=== PATIENT | male | born 1945 | race Caucasian/White ===

== ENCOUNTER 2025-05-14 11:09 | Outpatient (CLI) | payer MEDICARE, SELFPAY ==
--- NOTE | 2025-05-14 11:00 | RT.EKG_ITS ---
APPROVED REPORT Exam: Resting ECG Reason for Exam: tachycardia Patient Location: O HR:106 bpm ECG Measurements Heart Rate [address] 172 P 70 QRSd 74 QRS 41 QT 311 T -44 QTc 413 Conclusion Sinus tachycardia...rate> 99 Otherwise normal ECG
== END 2025-05-14 11:10 | disposition home or self-care (01) ==
PROVIDERS: PCP Nurse Practitioner Family; Visit Provider Physician Assistant
DX: R00.0 Tachycardia, unspecified (principal); R07.89 Other chest pain
CPT/HCPCS: 93010

== ENCOUNTER 2025-05-14 11:42 | Inpatient (IN) | payer MEDICARE, SELFPAY ==
[2025-05-14] VITALS (39 sets, daily range): BP systolic 123–173; BP diastolic 74–112; PULSE 65–116; RESP 10–54; TEMP 36.5–37; O2SAT 89–96
--- NOTE | 2025-05-14 11:30 | RT.EKG_ITS ---
APPROVED REPORT Exam: Resting ECG Reason for Exam: chest pain Patient Location: E HR:109 bpm ECG Measurements Heart Rate 109 AXIS [place] 163 P 78 QRSd 72 QRS 59 QT 320 T -26 QTc 431 Conclusion Sinus tachycardia...rate> 99 Posterior infarct, old...prom R T, V1-V3 or Q >40mS, V7-V9 No Occlusion [place]
--- NOTE | 2025-05-14 11:45 | DI.RAD_ITS ---
Exam(s) XR CHEST 2V PA LATERAL EXAM: XR CHEST 2V PA LATERAL CLINICAL HISTORY: SOB, chest tightness TECHNIQUE: 2D digital imaging was performed of the chest. Two images were obtained. PA and lateral views were obtained. COMPARISON: No exams were available for comparison FINDINGS: MEDIASTINUM: Normal. HEART: Normal. PULMONARY VASCULATURE: Normal. LUNGS: There are no focal consolidating infiltrates present. PLEURAL SPACE: No pleural effusion or pneumothorax. BONE:Within normal limits for the patient's age. OTHER FINDINGS:Normal. IMPRESSION: No acute pulmonary findings. DATA REPOSITORY: RADIATION DOSE DELIVERED:
[2025-05-14 12:12] LABS: Abs Immature Grans 0.05 10^3/uL (0.0-0.06); HCT 49.9 % (40.0-50.0); HGB 16.4 g/dL (13.5-17.5); Immature Grans % 0.5 %; MCH 31.1 pg (27.0-33.0); MCHC 32.9 % (32.0-36.0); MCV 95 fL (80-95); MPV 9.9 fL (8.0-11.0); Platelet Count 119 10^3/uL (130-400); RBC 5.27 10^6/uL (4.36-5.78); RDW 12.6 % (11.8-14.1); RDW-SD 43.5 fL; WBC 10.93 10^3/uL (4.4-10.8)
--- NOTE | 2025-05-14 12:32 | ED.PROG_ITS ---
Date of service: 05/14/25 Time of Service: 12:33 Medical Decision Making I completed a bedside echocardiogram this patient. Patient had difficult windows. Patient plays golf but had no obvious tick bites. His PVR was within normal limits. Chest x-ray dimer ordered. If chest x-ray is negative for infiltrate we will consider CT scan for increased sensitivity. 3:42 PM Patient found to have multiple PEs. He remained without hypotension. His tachycardia improved. He was hospitalized locally. Please see JAYNA note for details. Discharge Plan Disposition Patient Disposition: Admit to [facility] Condition: Stable Discharge Details Clinical Impression: Pulmonary embolism, bilateral, Incidental pulmonary nodule Primary Care Provider: Clementina Persaud ED Provider: Mariola Chu Home Meds and New Rx's Prescriptions: No Action propranolol 10 mg tablet 10 mg PO .QD PRN (Reason: tremor(s)) Qty: 30 1RF Rx Instructions: 10 to 20 mg once as needed, administered 1 hour prior to anticipated exacerbating situation multivitamin [Men's Multi-Vitamin] 1 EACH tablet 1 ea PO ONCE POCUS Exam (ED) Limited Cardiac Exam DATE OF EXAM: 05/14/25 TIME OF EXAM: 12:34 PROVIDER THAT PERFORMED THE STUDY: Arsen Thomason IS THIS A REPEAT EXAM DURING THIS ENCOUNTER: no REASON FOR EXAM: Dyspnea VISUALIZED STRUCTURES: Four Chambers, Left ventricle and LVOT VIEW OBTAINED: Apical 4-Chamber, Parasternal long-axis and Subxiphoid PERTINENT FINDINGS/IMPRESSION: No pericardial effusion and No RV dilation DIFFERENTIAL DIAGNOSES: Aortic outflow track less than 4 cm, good squeeze, RV less than LV, no significant pericardial effusion. Left-sided B-lines. Exam complete
--- NOTE | 2025-05-14 12:36 | W.ED.GENAD ---
Discharge Plan Disposition Patient Disposition: Admit to [facility] Condition: Stable Discharge Details Clinical Impression: Pulmonary embolism, bilateral, Incidental pulmonary nodule Primary Care Provider: Clementina Persaud ED Provider: Mariola Chu Home Meds and New Rx's Prescriptions: No Action propranolol 10 mg tablet 10 mg PO .QD PRN (Reason: tremor(s)) Qty: 30 1RF Rx Instructions: 10 to 20 mg once as needed, administered 1 hour prior to anticipated exacerbating situation multivitamin [Men's Multi-Vitamin] 1 EACH tablet 1 ea PO ONCE HPI General Date/Time Provider Initiated Documentation: 05/14/25 11:45. HPI Narrative: Pantera is a 79-year-old male who presents to the emergency department today for evaluation of chest tightness with shortness of breath, fatigue, and low appetite. He reports symptoms started approximately 1 week ago, with slight chest tightness and cough, initially attributed to poor air quality. He has had fatigue since onset of symptoms. Symptoms became worse over the weekend, he was coughing up phlegm and felt like his chest was congested; remained bedridden for the weekend. Symptoms initially improved, then became worse a couple of days ago, he has had lightheadedness, chest tightness, and shortness of breath. Denies associated fever/chills, congestion, sore throat, nausea/vomiting, abdominal pain, change in bowel or bladder function, calf redness/swelling, pedal edema. No known recent ill contacts. He was evaluated at [facility] today, given nebulizer treatment minimal improvement of symptoms, there was concern for EKG changes and he was advised to come to the emergency dept for evaluation. He has been trying to stay well-hydrated at home. PMH significant for HLD, aortic atherosclerosis, essential tremor, and hearing loss requiring hearing aids. Related Data Home Medications ?Medication ?Instructions ?Recorded ?Confirmed multivitamin (Men's Multi-Vitamin 1 ea PO ONCE 03/26/15 05/14/25 tablet) propranolol 10 mg tablet 10 mg PO .QD PRN tremor(s) #30 tabs 03/11/25 05/14/25 Previous Rx's ?Medication ?Instructions ?Recorded propranolol 10 mg tablet 10 mg PO .QD PRN tremor(s) #30 tabs 03/11/25 Allergies Allergy/AdvReac Type Severity Reaction Status Date / Time No Known Allergies Allergy Unverified 05/14/25 11:52 General Stated Complaint: Chest Pain TINO: 2 Exam Narrative Exam Narrative: General Appearance: Normal. Patient is alert and oriented, no acute distress Vital signs: Tachycardia noted, heart rate in the 100s to 110s at rest. Afebrile, O2 sat in the low 90s on room air. HEENT: Moist mucous membranes. Respiratory: Easy work of breathing, lung sounds clear bilaterally. No cough during exam Cardiovascular: Tachycardia noted, normal heart sounds. No pedal edema or obvious JVD noted Skin: Warm and dry, no rash. Psychiatric: Normal. Course Vital Signs Vital signs: Vital Signs Temperature 36.5 C 05/14/25 11:44 Pulse 115 H 05/14/25 11:44 Respiratory Rate 23 05/14/25 11:44 Blood Pressure 123/87 05/14/25 11:44 Pulse Oximetry 92 05/14/25 11:44 Temperature 36.5 C 05/14/25 11:44 Temperature Source Oral 05/14/25 11:44 Pulse 106 H 05/14/25 12:20 Pulse 106 H 05/14/25 12:20 Respiratory Rate 28 H 05/14/25 12:20 Respiratory Effort Short of Breath 05/14/25 12:07 Respiratory Depth Normal 05/14/25 12:07 Respiratory Pattern Normal 05/14/25 12:07 Blood Pressure 123/87 05/14/25 11:44 Blood Pressure Position Sitting 05/14/25 11:44 Pulse Oximetry 93 05/14/25 12:20 Oxygen Delivery Method Room Air 05/14/25 11:44 Oxygen Flow Rate 0 05/14/25 11:44 Pain Level 7 05/14/25 11:44 Lab/Test Results Lab/Test Results: Laboratory Tests Range/Units 05/14/25 12:07 WBC (4.4-10.8) 10^3/uL 10.93 H RBC (4.36-5.78) 10^6/uL 5.27 Hgb (13.5-17.5) g/dL 16.4 Hct (40.0-50.0) % 49.9 MCV (80-95) fL 95 MCH (27.0-33.0) pg 31.1 MCHC (32.0-36.0) % 32.9 RDW (11.8-14.1) % 12.6 Plt Count (130-400) 10^3/uL 119 L MPV (8.0-11.0) fL 9.9 Immature Gran % % 0.5 Neutrophils % % 65.9 Lymphocytes % % 24.2 Monocytes % % 7.8 Eosinophils % % 1.1 Basophils % % 0.5 Nucleated RBC % (0.0-0.3) % 0.0 Absolute Neutrophils (1.2-6.7) 10^3/uL 7.20 H Absolute Lymphocytes (1.2-3.4) 10^3/uL 2.65 Absolute Monocytes (0.1-0.8) 10^3/uL 0.85 H Absolute Eosinophils (0.0-0.7) 10^3/uL 0.12 Absolute Basophils (0.0-0.2) 10^3/uL 0.05 Medical Decision Making Initial Assessment: Chest discomfort and dyspnea. Tachycardia with new EKG changes (T wave inversions). Slightly low oxygen levels. Lightheadedness and upper chest tightness. Nebulizer treatment provided minimal relief. No known tick bites or recent exposures. Differential Diagnosis includes but is not limited to: PNA, viral illness such as COVID-19 or flu, CHF, PE, ACS, cardiac arrhythmia, dehydration, electrolyte imbalance. HEART score 4, indicating moderate risk of MACE. ED Course: - COVID-19 and influenza tests conducted; negative - POCUS ultrasound performed, B-lines noted in left lung ron. -500 cc normal saline bolus given, heart rate decreased into the mid 90s -Concern for ACS vs troponin leak in setting of elevated troponin in pt chest discomfort; aspirin administered and heparin initiated after ensuring patient does not have contraindications to anticoagulation. I independently interpreted the following tests: EKG shows sinus tachycardia rate 109, diffuse t wave inversions, no changes c/w acute ischemia. Troponin elevated, 123 followed by 120. D-dimer also elevated 7044. BNP elevated at 1409. CBC notable for mild leukocytosis (10.93) w mild thrombocytopenia (119). CMP largely reassuring, mildly elevated LFTs CTA performed, significant for extensive pulmonary embolic disease bilaterally, no evidence of saddle embolus. RV to LV ratio appears greater than 1, suggesting heart strain. A 7 mm nodule in the anterior aspect of the right upper lobe was also noted. Patient was updated of these finding. PESI calculated, 108 points, class IV, high risk. Final Assessment: Multiple pulmonary emboli Discussed case with Dr. Villatoro and Sis Lees, DIRECTOR OF STRATEGIC INITIATIVES, hospitalist team. Reviewed patient presentation, labs, and findings. They are agreeable to admit patient, will place admission orders, including lower extremity ultrasound and changing anticoagulation. Patient voices agreement with plan of care Patient consented to the use of MARGARET Imaging Data Radiologic Study: Radiologist's impression: Exam(s) XR CHEST 2V PA LATERAL EXAM: XR CHEST 2V PA LATERAL CLINICAL HISTORY: SOB, chest tightness TECHNIQUE: 2D digital imaging was performed of the chest. Two images were obtained. PA and lateral views were obtained. COMPARISON: No exams were available for comparison FINDINGS: MEDIASTINUM: Normal. HEART: Normal. PULMONARY VASCULATURE: Normal. LUNGS: There are no focal consolidating infiltrates present. PLEURAL SPACE: No pleural effusion or pneumothorax. BONE:Within normal limits for the patient's age. OTHER FINDINGS:Normal. IMPRESSION: No acute pulmonary findings. Radiologic Study #2: Radiologist's impression: Exam(s) CT CHEST PE CTA EXAM: CT CHEST PE CTA CLINICAL HISTORY: SOB, cough, CP, elevated ddimer. TECHNIQUE: Imaging Protocol: Axial CT angiography was performed with multi-slice acquisition and multi-planar and/or 3D reconstructions. Lung Computer Aided Detection (CAD) was utilized. CONTRAST MATERIAL: Intravenous: Omnipaque 350 contrast volume:75 mL COMPARISON: CR XR CHEST 2V PA LATERAL from 05/14/2025 FINDINGS: There is poor inspiration. Tracheobronchial tree: Patent where visualized. No bronchiectasis. Pulmonary parenchyma: There are low lung volumes with atelectasis present. There is a 7 mm nodule in the anterior aspect of the right upper lobe (series 10, image 51). No architectural distortion. Pulmonary Arteries: There is extensive bilateral pulmonary embolic disease with extension into the distal right and left main pulmonary arteries. There is no evidence of a saddle embolus. There are emboli involving pulmonary artery branches to all lobes. The RV to LV ratio is greater than 1 suggesting heart strain. Mediastinum and Kya: No dominant adenopathy or fluid collection. The esophagus is unremarkable. Visualized thyroid gland: Unremarkable. Pleura: No effusion or pneumothorax. Heart: The heart is not dilated. Moderate 2 vessel coronary artery calcification is present. No pericardial effusion. Aorta: Thoracic aorta non-dilated. No evidence of dissection. Atherosclerotic calcification is present. Upper abdomen: Unremarkable. Soft tissues: Unremarkable. Bones: Within normal limits for the patient's age. IMPRESSION: 1. Extensive pulmonary embolic disease bilaterally. There is no evidence of a saddle embolus. 2. The RV to LV ratio appears greater than 1 suggesting heart strain. 3. 7 mm nodule in the anterior aspect of the right upper lobe. For solitary solid noncalcified nodules measuring 6?8 mm in patients at high risk, an initial follow-up examination is recommended at 6?12 months and again at 18?24 months (grade 1B: strong recommendation, moderate quality evidence). (Calos et al., 2017) Solitary noncalcified solid nodules measuring 6?8 mm in patients with low clinical risk are recommended to undergo initial follow-up at 6?12 months depending on size, morphology, and patient preference (grade 1C: strong recommendation, low- or [id number] evidence). (Calos et al., 2017) 4. Findings were discussed with Mariola Loaiza at 2:02 p.m. on 05/14/2025. PFSH All Active Problems (Updated 05/14/25 @ 14:40 by Sis Lees APRN) Troponin level elevated (Acute) Pulmonary embolism (Chronic) Tachycardia (Acute) Wears hearing aid in both ears (Acute) Sensorineural hearing loss (SNHL) of both ears (Acute) Status post lumbar spine surgery for decompression of spinal cord (Acute) L3-L5, January 24, 2025 in [facility]. Essential tremor (Acute) right hand, with certain activity Atherosclerosis of aorta (Acute) Hyperlipemia (Acute) Medical History Tenosynovitis Chronic sciatica Family History Mother No problems noted. Father No problems noted. Social History Smoking/Tobacco Use Status: Never Smoking risk assessment performed?: Yes Alcohol Intake: current Alcohol Intake frequency: a few times a week Alcohol type: beer Drug use: Never Substance use type: does not use Adopted: No Caregiver/Support person: No Household members: none Housing: condominium Number of Children: 1 number of grandchildren: 0 Communication Needs: Hard of Hearing Education Level: college Details: Grade 16 Do you need help understanding health information?: Rarely current occupation: Retired Sexually active: No Do you think of yourself as: straight/heterosexual Current gender identity: male What is your relationship status?: How often do you talk on the phone with friends or family?: once per week How often do you get together with friends or relatives?: three or more times per week How often do you attend protestant or hoahaoism services?: 1-3 times per year Do you belong to any clubs or organized social groups?: yes Panel score (0-1 are the most socially isolated patients): 2 What type of physical activity do you participate in: walking and other Details: Golf, Darts Duration: > 90 minutes/day Frequency: 3-4 times per week Saima/Evangelical: Mormonism Special saima needs: No Seatbelt use: always 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
[2025-05-14 12:43] LABS: ALT 85 U/L (16-63); AST 56 U/L (15-37); Albumin 3.6 g/dL (3.4-5.0); Alkaline Phosphatase 93 U/L (46-116); Anion Gap 10.9 mmol/L (3-11); BUN 16 mg/dL (7-18); Bilirubin, Total 1.1 mg/dL (0.2-1.0); CO2 28.1 mmol/L (21.0-32.0); Calcium 9.2 mg/dL (8.5-10.1); Chloride 105 mmol/L (98-107); Estimated GFR 56.23 (mL/min/1.73m2); Glucose 118 mg/dL (74-106); Magnesium 2.3 mg/dL (1.8-2.4); NT-proBNP 1409 pg/mL (<300); Potassium 3.8 mmol/L (3.5-5.1); Sodium 144 mmol/L (136-145); Total Protein 7.5 g/dL (6.4-8.2)
[2025-05-14 12:45] LABS: D-Dimer 7044 ng/mlFEU (<500)
--- NOTE | 2025-05-14 12:45 | DI.CT_ITS ---
Exam(s) CT CHEST PE CTA EXAM: CT CHEST PE CTA CLINICAL HISTORY: SOB, cough, CP, elevated ddimer. TECHNIQUE: Imaging Protocol: Axial CT angiography was performed with multi- slice acquisition and multi-planar and/or 3D reconstructions. Lung Computer Aided Detection (CAD) was utilized. CONTRAST MATERIAL: Intravenous: Omnipaque 350 contrast volume:75 mL COMPARISON: CR XR CHEST 2V PA LATERAL from 05/14/2025 FINDINGS: There is poor inspiration. Tracheobronchial tree: Patent where visualized. No bronchiectasis. Pulmonary parenchyma: There are low lung volumes with atelectasis present. There is a 7 mm nodule in the anterior aspect of the right upper lobe (series 10, image 51). No architectural distortion. Pulmonary Arteries: There is extensive bilateral pulmonary embolic disease with extension into the distal right and left main pulmonary arteries. There is no evidence of a saddle embolus. There are emboli involving pulmonary artery branches to all lobes. The RV to LV ratio is greater than 1 suggesting heart strain. Mediastinum and Kya: No dominant adenopathy or fluid collection. The esophagus is unremarkable. Visualized thyroid gland: Unremarkable. Pleura: No effusion or pneumothorax. Heart: The heart is not dilated. Moderate 2 vessel coronary artery calcification is present. No pericardial effusion. Aorta: Thoracic aorta non-dilated. No evidence of dissection. Atherosclerotic calcification is present. Upper abdomen: Unremarkable. Soft tissues: Unremarkable. Bones: Within normal limits for the patient's age. IMPRESSION: 1. Extensive pulmonary embolic disease bilaterally. There is no evidence of a saddle embolus. 2. The RV to LV ratio appears greater than 1 suggesting heart strain. 3. 7 mm nodule in the anterior aspect of the right upper lobe. For solitary solid noncalcified nodules measuring 6???8 mm in patients at high risk, an initial follow-up examination is recommended at 6???12 months and again at 18???24 months (grade 1B: strong recommendation, moderate quality evidence). (Calos et al., 2017) Solitary noncalcified solid nodules measuring 6???8 mm in patients with low clinical risk are recommended to undergo initial follow-up at 6???12 months depending on size, morphology, and patient preference (grade 1C: strong recommendation, low- or [id number] evidence). (Calos et al., 2017) 4. Findings were discussed with Mariola Loaiza at 2:02 p.m. on 05/14/2025. RADIATION DOSE DELIVERED: 101.78mGy.cm Total DLP DATA REPOSITORY: All CT scans at this facility are submitted to the National Radiology Data Registry (NRDR) Dose Index Registry (DIR) with the [employer] (A[employer]). RADIATION OPTIMIZATION: All CT scans at this facility use at least one of these dose optimization techniques: automated exposure control; mA and/or kV adjustment per patient size (includes targeted exams where dose is matched to clinical indication); or iterative reconstruction.
[2025-05-14 12:48] LABS: Troponin I 123 ng/L (<or=76)
--- NOTE | 2025-05-14 13:00 | RT.EKG_ITS ---
APPROVED REPORT Exam: Resting ECG Reason for Exam: DELMAR beaulieu Patient Location: E HR:100 bpm ECG Measurements Heart Rate 100 AXIS [place] 184 P 85 QRSd 77 QRS 19 QT 345 T -43 QTc 445 Conclusion Sinus tachycardia...rate> 99 No Occlusion [place]
[2025-05-14] MEDS: Aspirin 81 MG CHEW 324 MG CH (13:04)
[2025-05-14] MEDS: Heparin in 0.45% NaCl 25,000 UNIT/250 ML BAG 9.5 UNIT IVINF (13:07)
[2025-05-14] MEDS: Normal Saline - Diluent 50 ML VIAL IJ (13:27)
[2025-05-14] MEDS: Omnipaque 350 MG/ML 500 ML BTL-Imaging package 75 ML IJ (13:28)
[2025-05-14] MEDS: Normal Saline 500 ML 1000 ML IV (13:46)
[2025-05-14 13:59] LABS: Troponin I 120 ng/L (<or=76)
[2025-05-14 14:03] LABS: Prothrombin Time 12.4 sec (9.1-11.1)
--- NOTE | 2025-05-14 14:22 | W.PM.HP.N ---
Date of service: 05/14/25 Time of Service: 14:23 Assessment and Plan Assessment and plan (1) Pulmonary embolism: Status: Chronic Assessment and plan: Elevated D-dimer and positive CTA findings as per HPI Echocardiogram: LVEF at 60 to 65% without segmental wall motion abnormality. Confirmed right ventricular strain with Quinn sign and septal flattening RVSP of 52.3 -BNP was 1409 above age cutoff but without signs and symptoms of fluid overload this is most likely caused by right ventricular strain Heparin drip initiated in the ED discontinued Lovenox 80 mg subcu twice daily Ultrasound of the lower extremity showed: Right lfemoral vein just below the level the saphenofemoral junction and with thrombus extending through the length of the femoral vein in the right thigh and extending into and throughout the popliteal vein and into the paired posterior tibial and paired peroneal veins in the calf. - [place] [facility] [place] (2) Hypoxic respiratory failure: Status: Acute Assessment and plan: Patient with no oxygen requirement at home, saturation in the high 80s on room air in the ED and needed oxygen supplementationof 1 L oxygen to maintain sat of 92 and above in the setting of pulmonary embolism discussed in point 1 (3) Troponin level elevated: Status: Acute Assessment and plan: Troponin 120, 123, 136 #4 troponin pending at 1845 Troponin in a.m. Most likely type II ischemia in the setting of point 1 and 2 As above (4) Pulmonary nodule: Status: Acute Assessment and plan: 7 mm nodule to the right upper lung as per imaging, seems to be a new finding as per patient Consider pulmonary consultation but this will be most likely outpatient follow-up (5) Tachycardia: Status: Acute Assessment and plan: EKG showed sinus arrhythmia heart rate 100 ongoing telemetry (6) Status post lumbar spine surgery for decompression of spinal cord: Status: Acute Assessment and plan: Surgery completed in [place] in 01/26/2025 without complications reported (7) Essential tremor: Status: Acute Assessment and plan: Ongoing home dose propranolol (8) Hyperlipemia: Status: Acute Assessment and plan: Not on statin therapy (9) Atherosclerosis of aorta: Status: Acute Assessment and plan: Outpatient follow-up, not on any home medicine Discussed with Dr. Bass History of Present Illness History of Present Illness Chief Complaint: SOB, tachycardia Narrative: This 81 yo male patient with a PMHx of spinal stenosis with neurologic claudication s/p decompression in [place] in 01/2025, essential tremors, aortic atherosclerosis, hyperlipidemia presented to the ED for evaluation of persisting chest tightness and lightheadedness starting this AM. The patient reported intermittent cough of whitish sputum and intermittent chest tightness starting a week ago, w/o chills, fever, hemoptysis, chest pain, nausea, vomiting , diarrhea or dysuria. The patient denied tingling and numbness to extremities, leg pain. Work-up in the ED was positive for extensive bilateral pulmonary embolic disease with extension into the distal right and left main pulmonary arteries w/o evidence of a saddle embolus but emboli involving pulmonary artery branches to all lobes and suspicious for heart strain. Solitary lung nodule of 7 mm in the anterior aspect of the right upper lobe seen. WBC at 10.9 with minimal left shift as well as bilirubin at 1.1 with minimal transaminitis seen. Troponin at 123 and 120, BNP at 1409. The patient was admitted to the medical/ surgical floor for continuation of IV heparin treatment initiated in the ED for pulmonary embolism and ongoing oxygen therapy for acute hypoxic respiratory failure. Full CODE STATUS confirmed. The patient denied any history of myocardial infarction, hypertension, clotting disorder, previous DVT or pulmonary embolism, history of DVT or thrombosis in his family, immobilization of 24 to 72 hours, trauma to lower extremities, fall, recent infectious illness, denies smoking history and EtOH dependence. 7 cm nodule finding reported to patient, this is a new finding for him. Review of Systems All systems reviewed & are unremarkable except as noted in HPI and below PFSH All Active Problems (Updated 05/14/25 @ 19:24 by Sis Lees APRN) Hypoxic respiratory failure (Acute) Pulmonary nodule (Acute) Troponin level elevated (Acute) Pulmonary embolism (Chronic) Tachycardia (Acute) Wears hearing aid in both ears (Acute) Sensorineural hearing loss (SNHL) of both ears (Acute) Status post lumbar spine surgery for decompression of spinal cord (Acute) L3-L5, January 24, 2025 in [facility]. Essential tremor (Acute) right hand, with certain activity Atherosclerosis of aorta (Acute) Hyperlipemia (Acute) Medical History Tenosynovitis Chronic sciatica Family History Mother No problems noted. Father No problems noted. Social History Smoking/Tobacco Use Status: Never Smoking risk assessment performed?: Yes Alcohol Intake: current Alcohol Intake frequency: a few times a week Alcohol type: beer Drug use: Never Substance use type: does not use Adopted: No Caregiver/Support person: No Household members: none Housing: house Number of Children: 1 number of grandchildren: 0 Communication Needs: Hard of Hearing Education Level: college Details: Grade 16 Do you need help understanding health information?: Rarely current occupation: Retired Sexually active: No Do you think of yourself as: straight/heterosexual Current gender identity: male What is your relationship status?: How often do you talk on the phone with friends or family?: once per week How often do you get together with friends or relatives?: three or more times per week How often do you attend synagogue or restorationism services?: 1-3 times per year Do you belong to any clubs or organized social groups?: yes Panel score (0-1 are the most socially isolated patients): 2 What type of physical activity do you participate in: walking and other Details: Golf, Darts Duration: > 90 minutes/day Frequency: 3-4 times per week Saima/Lutheran: Hindu Special saima needs: No Seatbelt use: always Drive intox or ride w/intox train driver: Yes Drive intox or w/intox train driver: rarely Firearms in home: No Do you feel safe at home: Yes Do you feel safe in your relationship?: Yes Victim of physical abuse: No Victim of emotional abuse: No Victim of sexual abuse: No Would you like helpful sources: No Meds Allergies and Home Medications Allergies Allergy/AdvReac Type Severity Reaction Status Date / Time No Known Allergies Allergy Unverified 05/14/25 11:52 Home Medications ?Medication ?Instructions ?Recorded ?Confirmed ?Type multivitamin (Men's Multi-Vitamin 1 ea PO ONCE 03/26/15 05/14/25 History tablet) propranolol 10 mg tablet 10 mg PO .QD PRN tremor(s) #30 tabs 03/11/25 05/14/25 Rx Results Labs 05/14/25 12:07 05/14/25 12:07 Labs: Laboratory Results - last 24 hr 05/14/25 05/14/25 05/14/25 12:06 12:07 13:30 WBC 10.93 H RBC 5.27 Hgb 16.4 Hct 49.9 MCV 95 MCH 31.1 MCHC 32.9 RDW 12.6 Plt Count 119 L MPV 9.9 Immature Gran % 0.5 Neutrophils % 65.9 Lymphocytes % 24.2 Monocytes % 7.8 Eosinophils % 1.1 Basophils % 0.5 Nucleated RBC % 0.0 Absolute Neutrophils 7.20 H Absolute Lymphocytes 2.65 Absolute Monocytes 0.85 H Absolute Eosinophils 0.12 Absolute Basophils 0.05 D-Dimer 7044 H Sodium 144 Potassium 3.8 Chloride 105 Carbon Dioxide 28.1 Anion Gap 10.9 BUN 16 Creatinine 1.3 Est GFR (CKD-EPI 2020) 56.23 Glucose 118 H Calcium 9.2 Magnesium 2.3 Total Bilirubin 1.1 H AST 56 H ALT 85 H Alkaline Phosphatase 93 Troponin I 123 H* 120 H* NT-Pro-B Natriuret Pep 1409 H Total Protein 7.5 Albumin 3.6 Last Vital Signs Temp 36.5 C 05/14/25 11:44 Pulse 97 H 05/14/25 14:10 Resp 24 05/14/25 14:10 BP 158/92 H 05/14/25 14:01 Pulse Ox 95 05/14/25 14:13 Time Spent Time spent with Patient: >75 minutes Time was spent: preparing to see the patient(eg.review tests), obtaining and/or reviewing separately otained hiistory, ordering medications,tests, procedures, referring, communicating with other health gericare aide teacher, indepentently interpreting results, counseling the patient and care coordination
[2025-05-14 14:42] LABS: INR 1.2 (0.9-1.1)
--- NOTE | 2025-05-14 15:48 | DI.US_ITS ---
Exam(s) US EXTREMITY VENOUS BI EXAM: US EXTREMITY VENOUS BI CLINICAL HISTORY: PE TECHNIQUE: Grayscale, color, and doppler imaging of the deep venous system of both lower extremities was performed. COMPARISON: US US ECHOCARDIOGRAM from 05/14/2025 FINDINGS: This is a positive-abnormal study in the right lower extremity. Left lower extremity is negative for DVT. However there is extensive DVT in the right lower extremity with mobile thrombus evident in the femoral vein just below the level the saphenofemoral junction and with thrombus extending through the length of the femoral vein in the right thigh and extending into and throughout the popliteal vein and into the paired posterior tibial and paired peroneal veins in the calf. Greater saphenous vein is patent. IMPRESSION: 1. There is extensive DVT in the right lower extremity both above and below the knee. The cephalad extent of the clot is in the upper right femoral vein just below the level of the saphenofemoral junction. The clot extends a continuous fashion through the entire femoral vein, popliteal vein, and into the posterior tibial and peroneal veins of the calf. No evidence of DVT in the opposite-left lower extremity. DATA REPOSITORY:
[2025-05-14 16:14] LABS: Troponin I 136 ng/L (<or=76)
--- NOTE | 2025-05-14 17:15 | W.PC.ACHO ---
Registration Status: ADM IN Primary Language: Preferred Language: Irish ED Information & Data Chief Complaint Chest Pain 05/14/25 12:48 Triage Note Pt reports chest tightness, 05/14/25 11:44 lightheadedness that has been going on for 4 days, productive cough for 3.5 days, increased SOB worse today than normal Medical / Surgical History (Last Reviewed 07/10/24 @ 13:57 by KRISTIAN Dinero) Tenosynovitis Chronic sciatica Most Recent Vital Signs Temperature 36.5 C 05/14/25 11:44 Temperature Source Oral 05/14/25 11:44 Pulse 93 H 05/14/25 15:31 Pulse 92 H 05/14/25 15:31 Respiratory Rate 29 H 05/14/25 15:31 Respiratory Effort Short of Breath 05/14/25 12:07 Respiratory Depth Normal 05/14/25 12:07 Respiratory Pattern Normal 05/14/25 12:07 Blood Pressure 153/88 H 05/14/25 15:31 Blood Pressure Mean 111 05/14/25 15:31 Blood Pressure Position Sitting 05/14/25 11:44 Pulse Oximetry 93 05/14/25 15:31 Oxygen Delivery Method Nasal Cannula 05/14/25 14:13 Oxygen Flow Rate 1 05/14/25 14:13 Pain Level 7 05/14/25 11:44 Allergies No Known Allergies Allergy (Unverified 05/14/25 11:52) IV IV Catheter Type [Right Hand] Peripheral IV IV Catheter Type [Left Saline Lock Antecubital] IV Catheter Gauge [Right Hand] 20 IV Catheter Gauge [Left 18 Antecubital] Diet Orders Category Date Time Status Heart Healthy Eating [DIET] Nutrition 05/14/25 Dinner Active Diagnostics 05/14/25 05/14/25 05/14/25 Range/Units 18:45 17:36 16:00 WBC (4.4-10.8) 10^3/uL RBC (4.36-5.78) 10^6/uL Hgb (13.5-17.5) g/dL Hct (40.0-50.0) % MCV (80-95) fL MCH (27.0-33.0) pg MCHC (32.0-36.0) % RDW (11.8-14.1) % Plt Count (130-400) 10^3/uL MPV (8.0-11.0) fL Immature Gran % % Neutrophils % % Lymphocytes % % Monocytes % % Eosinophils % % Basophils % % Nucleated RBC % (0.0-0.3) % Absolute Neutrophils (1.2-6.7) 10^3/uL Absolute Lymphocytes (1.2-3.4) 10^3/uL Absolute Monocytes (0.1-0.8) 10^3/uL Absolute Eosinophils (0.0-0.7) 10^3/uL Absolute Basophils (0.0-0.2) 10^3/uL PT (9.1-11.1) sec INR (0.9-1.1) APTT (20.6-30.2) sec D-Dimer (<500) ng/mlFEU Sodium (136-145) mmol/L Potassium (3.5-5.1) mmol/L Chloride (98-107) mmol/L Carbon Dioxide (21.0-32.0) mmol/L Anion Gap (3-11) mmol/L BUN (7-18) mg/dL Creatinine (0.70-1.30) mg/dL Est GFR (CKD-EPI 2020) (mL/min/1.73m2) Glucose (74-106) mg/dL Calcium (8.5-10.1) mg/dL Magnesium (1.8-2.4) mg/dL Total Bilirubin (0.2-1.0) mg/dL AST (15-37) U/L ALT (16-63) U/L Alkaline Phosphatase (46-116) U/L Troponin I Pending Cancelled Cancelled (<or=76) ng/L NT-Pro-B Natriuret Pep (<300) pg/mL Total Protein (6.4-8.2) g/dL Albumin (3.4-5.0) g/dL 05/14/25 05/14/25 05/14/25 Range/Units 15:45 13:30 12:07 WBC 10.93 H (4.4-10.8) 10^3/uL RBC 5.27 (4.36-5.78) 10^6/uL Hgb 16.4 (13.5-17.5) g/dL Hct 49.9 (40.0-50.0) % MCV 95 (80-95) fL MCH 31.1 (27.0-33.0) pg MCHC 32.9 (32.0-36.0) % RDW 12.6 (11.8-14.1) % Plt Count 119 L (130-400) 10^3/uL MPV 9.9 (8.0-11.0) fL Immature Gran % 0.5 % Neutrophils % 65.9 % Lymphocytes % 24.2 % Monocytes % 7.8 % Eosinophils % 1.1 % Basophils % 0.5 % Nucleated RBC % 0.0 (0.0-0.3) % Absolute Neutrophils 7.20 H (1.2-6.7) 10^3/uL Absolute Lymphocytes 2.65 (1.2-3.4) 10^3/uL Absolute Monocytes 0.85 H (0.1-0.8) 10^3/uL Absolute Eosinophils 0.12 (0.0-0.7) 10^3/uL Absolute Basophils 0.05 (0.0-0.2) 10^3/uL PT 12.4 H (9.1-11.1) sec INR 1.2 H (0.9-1.1) APTT > 155.0 H* (20.6-30.2) sec D-Dimer (<500) ng/mlFEU Sodium 144 (136-145) mmol/L Potassium 3.8 (3.5-5.1) mmol/L Chloride 105 (98-107) mmol/L Carbon Dioxide 28.1 (21.0-32.0) mmol/L Anion Gap 10.9 (3-11) mmol/L BUN 16 (7-18) mg/dL Creatinine 1.3 (0.70-1.30) mg/dL Est GFR (CKD-EPI 2020) 56.23 (mL/min/1.73m2) Glucose 118 H (74-106) mg/dL Calcium 9.2 (8.5-10.1) mg/dL Magnesium 2.3 (1.8-2.4) mg/dL Total Bilirubin 1.1 H (0.2-1.0) mg/dL AST 56 H (15-37) U/L ALT 85 H (16-63) U/L Alkaline Phosphatase 93 (46-116) U/L Troponin I 136 H* 120 H* 123 H* (<or=76) ng/L NT-Pro-B Natriuret Pep 1409 H (<300) pg/mL Total Protein 7.5 (6.4-8.2) g/dL Albumin 3.6 (3.4-5.0) g/dL 05/14/25 Range/Units 12:06 WBC (4.4-10.8) 10^3/uL RBC (4.36-5.78) 10^6/uL Hgb (13.5-17.5) g/dL Hct (40.0-50.0) % MCV (80-95) fL MCH (27.0-33.0) pg MCHC (32.0-36.0) % RDW (11.8-14.1) % Plt Count (130-400) 10^3/uL MPV (8.0-11.0) fL Immature Gran % % Neutrophils % % Lymphocytes % % Monocytes % % Eosinophils % % Basophils % % Nucleated RBC % (0.0-0.3) % Absolute Neutrophils (1.2-6.7) 10^3/uL Absolute Lymphocytes (1.2-3.4) 10^3/uL Absolute Monocytes (0.1-0.8) 10^3/uL Absolute Eosinophils (0.0-0.7) 10^3/uL Absolute Basophils (0.0-0.2) 10^3/uL PT (9.1-11.1) sec INR (0.9-1.1) APTT (20.6-30.2) sec D-Dimer 7044 H (<500) ng/mlFEU Sodium (136-145) mmol/L Potassium (3.5-5.1) mmol/L Chloride (98-107) mmol/L Carbon Dioxide (21.0-32.0) mmol/L Anion Gap (3-11) mmol/L BUN (7-18) mg/dL Creatinine (0.70-1.30) mg/dL Est GFR (CKD-EPI 2020) (mL/min/1.73m2) Glucose (74-106) mg/dL Calcium (8.5-10.1) mg/dL Magnesium (1.8-2.4) mg/dL Total Bilirubin (0.2-1.0) mg/dL AST (15-37) U/L ALT (16-63) U/L Alkaline Phosphatase (46-116) U/L Troponin I (<or=76) ng/L NT-Pro-B Natriuret Pep (<300) pg/mL Total Protein (6.4-8.2) g/dL Albumin (3.4-5.0) g/dL Intake and Output - 24 Hour Total 05/14/25 11:42 thru 05/14/25 14:32 Intake Total 506.175 Balance 506.175 Weight 77.111 kg Intake: IV 506.175 Falls Risk Assessment History of Falls No History 05/14/25 12:07 Contributing Factors No Factors 05/14/25 12:07 Ambulatory Aids Independent 05/14/25 12:07 Tubes/Lines None 05/14/25 12:07 Gait Evaluation No gait disturbance 05/14/25 12:07 Cognition No cognitive impairment 05/14/25 12:07 Fall Total Score 0 05/14/25 12:07 Level of Risk Standard/Low Risk 05/14/25 12:07 Problems (Last Reviewed 07/10/24 @ 13:57 by KRISTIAN Dinero) Troponin level elevated (Acute) Pulmonary embolism (Chronic) Tachycardia (Acute) Status post lumbar spine surgery for decompression of spinal cord (Acute) Essential tremor (Acute) Atherosclerosis of aorta (Acute) Hyperlipemia (Acute) v v v v v v v v v Sending and/or Receiving Nurses: Please use comment section below to note any information pertinent to the patient hand-off not included above. Information / Comments: Report received from: C/O SOB x 4 days, SAT's 90 % and placed on 1L NC. 143/76 HR 70, RR18, 37.2 C, denies pain, independent otherwise, Pulmonary emobli noted on CT and started on hep gtt. MILAGROS Crowe
[2025-05-14] MEDS: Enoxaparin 80 MG/0.8 ML SYR SC (17:59)
[2025-05-14] MEDS: Normal Saline Flush 10 ML SYR IVP (18:01)
[2025-05-14 20:10] LABS: Troponin I 138 ng/L (<or=76)
[2025-05-15 00:13] VITALS: O2SAT 94
[2025-05-15 02:54] VITALS: BP 119/82; PULSE 87; RESP 16; TEMP 36.4; O2SAT 91
[2025-05-15] MEDS: Enoxaparin 80 MG/0.8 ML SYR SC ×2 (03:55→15:46)
[2025-05-15 07:06] LABS: Abs Immature Grans 0.03 10^3/uL (0.0-0.06); HCT 43.5 % (40.0-50.0); Immature Grans % 0.4 %; MCH 31.4 pg (27.0-33.0); MCHC 32.9 % (32.0-36.0); MCV 96 fL (80-95); MPV 9.8 fL (8.0-11.0); Platelet Count 128 10^3/uL (130-400); RBC 4.55 10^6/uL (4.36-5.78); RDW 12.6 % (11.8-14.1); RDW-SD 44.1 fL; WBC 7.44 10^3/uL (4.4-10.8)
[2025-05-15 07:12] LABS: HGB 14.3 g/dL (13.5-17.5)
[2025-05-15 07:29] VITALS: BP 130/81; PULSE 93; RESP 18; TEMP 37.6; O2SAT 94
[2025-05-15 07:38] LABS: ALT 57 U/L (16-63); AST 27 U/L (15-37); Albumin 2.9 g/dL (3.4-5.0); Alkaline Phosphatase 73 U/L (46-116); Anion Gap 7.4 mmol/L (3-11); BUN 15 mg/dL (7-18); Bilirubin, Total 0.8 mg/dL (0.2-1.0); CO2 28.6 mmol/L (21.0-32.0); Calcium 8.4 mg/dL (8.5-10.1); Chloride 107 mmol/L (98-107); Estimated GFR 68.71 (mL/min/1.73m2); Glucose 105 mg/dL (74-106); Potassium 4.2 mmol/L (3.5-5.1); Sodium 143 mmol/L (136-145); Total Protein 6.3 g/dL (6.4-8.2)
[2025-05-15 07:43] LABS: Magnesium 2.2 mg/dL (1.8-2.4)
[2025-05-15 07:46] LABS: Troponin I 106 ng/L (<or=76)
[2025-05-15 08:05] VITALS: O2SAT 92
--- NOTE | 2025-05-15 09:30 | W.PM.PROGNOT ---
Date of Service Date of service: 05/15/25 Time of Service: 09:30 Objective Last Vital Signs Temp 37.6 C H 05/15/25 07:29 Pulse 93 H 05/15/25 07:29 Resp 18 05/15/25 07:29 BP 130/81 05/15/25 07:29 Pulse Ox 92 05/15/25 08:05 Laboratory Results - last 24 hr 05/14/25 05/14/25 05/14/25 12:06 12:07 13:30 WBC 10.93 H RBC 5.27 Hgb 16.4 Hct 49.9 MCV 95 MCH 31.1 MCHC 32.9 RDW 12.6 Plt Count 119 L MPV 9.9 Immature Gran % 0.5 Neutrophils % 65.9 Lymphocytes % 24.2 Monocytes % 7.8 Eosinophils % 1.1 Basophils % 0.5 Nucleated RBC % 0.0 Absolute Neutrophils 7.20 H Absolute Lymphocytes 2.65 Absolute Monocytes 0.85 H Absolute Eosinophils 0.12 Absolute Basophils 0.05 PT 12.4 H INR 1.2 H APTT > 155.0 H* D-Dimer 7044 H Sodium 144 Potassium 3.8 Chloride 105 Carbon Dioxide 28.1 Anion Gap 10.9 BUN 16 Creatinine 1.3 Est GFR (CKD-EPI 2020) 56.23 Glucose 118 H Calcium 9.2 Magnesium 2.3 Total Bilirubin 1.1 H AST 56 H ALT 85 H Alkaline Phosphatase 93 Troponin I 123 H* 120 H* NT-Pro-B Natriuret Pep 1409 H Total Protein 7.5 Albumin 3.6 05/14/25 05/14/25 05/14/25 15:45 16:00 17:36 WBC RBC Hgb Hct MCV MCH MCHC RDW Plt Count MPV Immature Gran % Neutrophils % Lymphocytes % Monocytes % Eosinophils % Basophils % Nucleated RBC % Absolute Neutrophils Absolute Lymphocytes Absolute Monocytes Absolute Eosinophils Absolute Basophils PT INR APTT D-Dimer Sodium Potassium Chloride Carbon Dioxide Anion Gap BUN Creatinine Est GFR (CKD-EPI 2020) Glucose Calcium Magnesium Total Bilirubin AST ALT Alkaline Phosphatase Troponin I 136 H* Cancelled Cancelled NT-Pro-B Natriuret Pep Total Protein Albumin 05/14/25 05/15/25 19:42 06:40 WBC 7.44 RBC 4.55 Hgb 14.3 D Hct 43.5 MCV 96 H MCH 31.4 MCHC 32.9 RDW 12.6 Plt Count 128 L MPV 9.8 Immature Gran % 0.4 Neutrophils % 63.1 Lymphocytes % 24.9 Monocytes % 8.9 Eosinophils % 2.3 Basophils % 0.4 Nucleated RBC % 0.0 Absolute Neutrophils 4.70 Absolute Lymphocytes 1.85 Absolute Monocytes 0.66 Absolute Eosinophils 0.17 Absolute Basophils 0.03 PT INR APTT D-Dimer Sodium 143 Potassium 4.2 Chloride 107 Carbon Dioxide 28.6 Anion Gap 7.4 BUN 15 Creatinine 1.1 Est GFR (CKD-EPI 2020) 68.71 Glucose 105 Calcium 8.4 L Magnesium 2.2 Total Bilirubin 0.8 AST 27 ALT 57 Alkaline Phosphatase 73 Troponin I 138 H* 106 H* NT-Pro-B Natriuret Pep Total Protein 6.3 L Albumin 2.9 L PAWSS Have you Been Recently Intoxicated or Drunk Within the Last 30 days?: No Have you Ever Experienced Previous Episodes of Alcohol Withdrawal?: No Have you ever Experienced Withdrawal Seizures?: No Have you ever Experienced Delirium Tremens(DT)s?: No Have you ever undergone Alcohol Rehabilitation Treatment (i.e, inpt ot outpatient treatment programs)?: No Have you ever Experienced Blackouts?: No Have you ever Combined Alcohol with other Downers within the last 90 days?: No Have you ever Combined Alcohol with any other Substance of Abuse during the last 90 days?: No Positive Blood Alcohol level on Presentation? [PCS.BAL]: No Evidence of Increased Autonomic Activity (i.e. HR>120, tremor, sweating, agitation, nausea)?: No Result: 0
--- NOTE | 2025-05-15 10:57 | PT.INIE ---
PT Notes Visit Reasons: Bilateral pulmonary emboli, hypoxic resp fail., NS Physical Therapy Inpatient Initial Evaluation Date: 05/15/2025 Referring Doctor: Sis Lees NP PT Orders: PT CONSULT: Safety Consult for D/C Precautions: Fall. Standard. Activity as tolerated. Patient Profile/Admitting Diagnosis: Pantera is a 79-year-old male S/P lumbar spinal surgery for decompression of spnal cord on who presented to the ED on 05/14/2025 with chief complaintsof chest tightness, SOB, fatigue, and decreased appetite. Patient was admitted to acute level of care for managementof pulmonary embolism, hypoxic respiratory failure, elevated troponin, HLD, tachycardia, and pumonary nodule. PMHX: All Active Problems (Updated 05/14/25 @ 19:24 by Sis Lees APRN) Hypoxic respiratory failure (Acute) Pulmonary nodule (Acute) Troponin level elevated (Acute) Pulmonary embolism (Chronic) Tachycardia (Acute) Wears hearing aid in both ears (Acute) Sensorineural hearing loss (SNHL) of both ears (Acute) Status post lumbar spine surgery for decompression of spinal cord (Acute) L3-L5, January 24, 2025 in [facility]. Essential tremor (Acute) right hand, with certain activity Atherosclerosis of aorta (Acute) Hyperlipemia (Acute) Medical History Tenosynovitis Chronic sciatica Social History/Home Situation: Lives alone in a private home with 2 steps to enter. Equipment Owned/DME: None Subjective: Mild chest tightness and shortness of breath that resolved with rest. Objective: General Observation: Seated on chair. No lines. Mental Status: Alert and oriented as to person, place, time, and purpose. Able to pay attention, focus, and respond appropriately. Pain: None reported Vital Signs: Monitored via tele ROM: Right Upper Extremity: Shoulder Flexion WFL. Shoulder abduction WFL. Elbow flexion WFL. Wrist flexion WFL. Functional opening and closing of hand WFL. Left Upper Extremity: Shoulder Flexion WFL. Shoulder abduction WFL. Elbow flexion WFL. Wrist flexion WFL. Functional opening and closing of hand WFL. Right Lower Extremity: Hip flexion WFL. Hip abduction WFL. Knee flexion WFL. Ankle dorsiflexion WFL. Ankle plantarflexion WFL. Left Lower Extremity: Hip flexion WFL. Hip abduction WFL. Knee flexion WFL. Ankle dorsiflexion WFL. Ankle plantarflexion WFL. Strength: Right Upper Extremity: Shoulder flexors 4/5. Shoulder abductors 4/5. Elbow flexors 5/5. Elbow extensors 5/5. Hospitality Intern strong. Left Upper Extremity: Shoulder flexors 4/5. Shoulder abductors 4/5. Elbow flexors 5/5. Elbow extensors 5/5. Hospitality Intern strong. Right Lower Extremity: Hip flexors 4/5. Hip abductors 4/5. Knee flexors 5/5. Knee extensors 4/5. Ankle dorsiflexors 4/5. Ankle plantarflexors 4/5. Left Lower Extremity: Hip flexors 4/5. Hip abductors 4/5. Knee flexors 5/5. Knee extensors 4/5. Ankle dorsiflexors 4/5. Ankle plantarflexors 4/5. Bed Mobility/Transfers: Independent Gait: 600 feet without device. Gait pattern unremarkable. Mild SOB and chest tightness resolved with rest. Stairs: Patient was able to complete 9 x 4-inch steps and 6 x 6-inch steps without holding onto either rails for this session Balance: Static Sitting: Normal Dynamic Sitting: Normal Static Standing: Good Dynamic Standing: Good Special Tests: Mobility Limitations Standardized Measure [facility] 6 clicks Basic Mobility Inpatient Short Form: Raw Score: 24 CMS Score: 0% deficit Informed Consent/Education: Patient was instructed in purpose of PT consult. Assessment: Patient was able to tolerate 600 feet of level surface ambulation without an assistive device with mild shortness of breath and minimal chest tightness at end of activity that subsided with rest. Patient was also able to complete 9 x 4-inch steps and 6 x 6-inch steps without holding onto either rails for this session. Patient at baseline mobility level and was stable without an assistive device. Patient is [place] 50257 low complexity based on the following: History: 79-year-old male with past medical history as indicated above Examination: As above Presentation: As above Decision Making: As above Goals: N/A. PT evaluation only. Plan of Care/Treatment Plan: N/A. PT evaluation only. DISCHARGE RECOMMENDATIONS: No services needed. No equipment needed. TREATMENT CODE/TIME: 93301 x 27 minutes for 1 unit (10:54-11:21). Thank you for the opportunity to participate in the care of this patient. Delmi Montano PT, DPT, CLT [facility] [place], [place]
[2025-05-15 11:27] VITALS: BP 128/78; PULSE 99; RESP 18; TEMP 36.6; O2SAT 94
--- NOTE | 2025-05-15 12:06 | DSE_ITS ---
Date of service: 05/15/25 Time of Service: 12:46 DS: Diagnosis Discharge Diagnosis (1) Pulmonary embolism: Status: Chronic (2) Hypoxic respiratory failure: Status: Acute (3) Troponin level elevated: Status: Acute (4) Pulmonary nodule: Status: Acute (5) Tachycardia: Status: Acute (6) Status post lumbar spine surgery for decompression of spinal cord: Status: Acute (7) Essential tremor: Status: Acute (8) Hyperlipemia: Status: Acute (9) Atherosclerosis of aorta: Status: Acute Discharge Plan Disposition Patient Disposition: Home Condition: Improving Discharge Details Reason For Visit: Bilateral pulmonary emboli, hypoxic resp fail., NS Admit Date/Time: 05/14/25 14:37 Admit Provider: Kyle Villatoro Attending Provider: Kyle Villatoro Primary Care Provider: [facility] Course Hospital Course: This 81 yo male patient with a PMHx of spinal stenosis with neurologic claudication s/p decompression in [place] in 01/2025, essential tremors, aortic atherosclerosis, hyperlipidemia presented to the ED on 05/14/25 for evaluation of persisting chest tightness and lightheadedness starting this AM. The patient reported intermittent cough of whitish sputum and intermittent chest tightness starting a week ago, w/o chills, fever, hemoptysis, chest pain, nausea, vomiting , diarrhea or dysuria. The patient denied tingling and numbness to extremities, leg pain. Work-up in the ED was positive for extensive bilateral pulmonary embolic disease with extension into the distal right and left main pulmonary arteries w/o evidence of a saddle embolus but emboli involving pulmonary artery branches to all lobes and suspicious for heart strain. Solitary lung nodule of 7 mm in the anterior aspect of the right upper lobe seen. WBC at 10.9 with minimal left shift as well as bilirubin at 1.1 with minimal transaminitis seen. Troponin at 123 and 120, BNP at 1409. The patient was admitted to the medical/ surgical floor for continuation of IV heparin treatment initiated in the ED for pulmonary embolism and ongoing oxygen therapy for acute hypoxic respiratory failure. The patient denied any history of myocardial infarction, hypertension, clotting disorder, previous DVT or pulmonary embolism, family history of DVT or thrombosis , immobilization of 24 to 72 hours, trauma to lower extremities, fall, recent infectious illness, denies smoking history and ETOH dependence. 7 cm nodule finding reported to patient, this is a new finding for him. Troponin trending down. Echocardiogram confirmed RV strain with preserved LVEF 60-65%, dilated RV with moderately reduced systolic function,positive Quinn signs, septal flattening from RV pressure overload and RVSP of 52 mmHg. The patient c/o of ongoing congestion with cough but hypoxia has resolved today and the patient was clear by physical therapy to return home w/o services. Today the patient remained hemodynamically stable w/o chest pain and will be discharged home with a follow-up with his PCP for ongoing monitoring of his PE treatment with Lovenox 80 mg SC for 90 days. [facility] vascular consultation for finding of signifincant clot to the right femoral vein completed w/o recommendation for interventions. Referral to vascular or hematology to be discussed with patient during PCP follow-up. Recommending referral to pneumology for nodule finding on chest imaging. H2FPEF score of 2 points at this time and referral to cardiology recommended outpatient. Discussed with Dr. Villatoro Home Meds and New Rx's Prescriptions: New enoxaparin 80 mg/0.8 mL Syringe 80 mg SC Q12H Qty: 144 0RF guaifenesin [Mucus Relief ER] 600 mg Tablet Extended Release 12hr 600 mg PO BID Qty: 14 0RF benzonatate 100 mg capsule 100 mg PO TID Qty: 14 0RF albuterol sulfate [Ventolin HFA] 90 mcg/actuation Hfa Aerosol Inhaler 2 puff inhalation Q6H PRN PRN (Reason: shortness of breath or wheezing) Qty: 6.7 0RF Rx Instructions: One already provided on discharge Continued propranolol 10 mg tablet 10 mg PO .QD PRN (Reason: tremor(s)) Qty: 30 1RF Rx Instructions: 10 to 20 mg once as needed, administered 1 hour prior to anticipated exacerbating situation multivitamin [Men's Multi-Vitamin] 1 EACH tablet 1 ea PO ONCE Discharge Instructions Referrals: kyle van [Other] Referral Note: F/u with you PCP in [place] once you return- Bring your discharge summary and the notes from Clementina Persaud your PCP in [place] Problems: Pulmonary embolism; Pulmonary nodule Hung,EDY Mcrae [Primary Care Provider, Medicine] Referral Note: F/u within 7 days of discharged Activity:: Activity as Tolerated Equipment/Supplies:: No Equipment Needed Diet:: heart healthy Discharge Orders Discharge Orders: Discharge Order (Routine); Ordered 05/15/25 Ordered By: Sis Lees DS: Summary Time Spent with Patient providing and/or coordinating discharge services: Greater than 30 minutes Status at Discharge Functional status at discharge: independent ambulation Overall status at discharge: patient is progressing back to baseline Mental Status: mental status grossly normal Speech and Movement: speech and movement normal Mood: congruent mood Affect: normal affect and anxious affect Exam Narrative Exam Narrative: Alert and oriented X 4, no acute distress, intermittent non-productive cough,improved tachypnea and dyspnea Clear lungs, S1 S2 no murmur , SA HR 92 on telemetry, PPPX4 no swelling to lower ext., abdomen is non-distended, soft non- tender, no CVA tenderness Psych Mental Status: mental status grossly normal Speech and Movement: speech and movement normal Mood: congruent mood Affect: normal affect and anxious affect DS: Data Vitals/I&O Vitals and I&O: Vital Signs Temperature 36.6 C 05/15/25 11:27 Temperature Source Temporal Artery Scan 05/15/25 11:27 Pulse 99 H 05/15/25 11:27 Pulse 92 H 05/14/25 15:31 Respiratory Rate 18 05/15/25 11:27 Respiratory Effort Short of Breath 05/14/25 18:14 Respiratory Depth Shallow 05/14/25 18:14 Respiratory Pattern Normal 05/14/25 18:14 Blood Pressure 128/78 05/15/25 11:27 Blood Pressure Mean 94 05/15/25 11:27 Blood Pressure Position Sitting 05/14/25 11:44 Pulse Oximetry 94 05/15/25 11:27 Oxygen Delivery Method Room Air 05/15/25 11:27 Oxygen Flow Rate 0 05/15/25 11:27 Pain Level 7 05/14/25 11:44 Comment put pt on 1 L/min NC, o2 SAT 94% 05/14/25 19:34 Intake & Output 05/14/25 05/15/25 05/15/25 23:59 11:59 23:59 Intake Total 1186.175 / 1186.175 Output Total 300 / 300 Balance 886.175 / 886.175 Intake: IV 506.175 / 506.175 Oral 680 / 680 Output: Urine 300 / 300 Other: Urine Color Light Nereida Urine Appearance Clear Comment pt has voided independently Data Completed and Pending Labs on day of discharge: Labs from last 24 hours 05/15/25 05/14/25 05/14/25 06:40 19:42 17:36 WBC 7.44 RBC 4.55 Hgb 14.3 D Hct 43.5 MCV 96 H MCH 31.4 MCHC 32.9 RDW 12.6 Plt Count 128 L MPV 9.8 Immature Gran % 0.4 Neutrophils % 63.1 Lymphocytes % 24.9 Monocytes % 8.9 Eosinophils % 2.3 Basophils % 0.4 Nucleated RBC % 0.0 Absolute Neutrophils 4.70 Absolute Lymphocytes 1.85 Absolute Monocytes 0.66 Absolute Eosinophils 0.17 Absolute Basophils 0.03 PT INR APTT D-Dimer Sodium 143 Potassium 4.2 Chloride 107 Carbon Dioxide 28.6 Anion Gap 7.4 BUN 15 Creatinine 1.1 Est GFR (CKD-EPI 2020) 68.71 Glucose 105 Calcium 8.4 L Magnesium 2.2 Total Bilirubin 0.8 AST 27 ALT 57 Alkaline Phosphatase 73 Troponin I 106 H* 138 H* Cancelled NT-Pro-B Natriuret Pep Total Protein 6.3 L Albumin 2.9 L 05/14/25 05/14/25 05/14/25 16:00 15:45 13:30 WBC RBC Hgb Hct MCV MCH MCHC RDW Plt Count MPV Immature Gran % Neutrophils % Lymphocytes % Monocytes % Eosinophils % Basophils % Nucleated RBC % Absolute Neutrophils Absolute Lymphocytes Absolute Monocytes Absolute Eosinophils Absolute Basophils PT 12.4 H INR 1.2 H APTT > 155.0 H* D-Dimer Sodium Potassium Chloride Carbon Dioxide Anion Gap BUN Creatinine Est GFR (CKD-EPI 2020) Glucose Calcium Magnesium Total Bilirubin AST ALT Alkaline Phosphatase Troponin I Cancelled 136 H* 120 H* NT-Pro-B Natriuret Pep Total Protein Albumin 05/14/25 05/14/25 12:07 12:06 WBC 10.93 H RBC 5.27 Hgb 16.4 Hct 49.9 MCV 95 MCH 31.1 MCHC 32.9 RDW 12.6 Plt Count 119 L MPV 9.9 Immature Gran % 0.5 Neutrophils % 65.9 Lymphocytes % 24.2 Monocytes % 7.8 Eosinophils % 1.1 Basophils % 0.5 Nucleated RBC % 0.0 Absolute Neutrophils 7.20 H Absolute Lymphocytes 2.65 Absolute Monocytes 0.85 H Absolute Eosinophils 0.12 Absolute Basophils 0.05 PT INR APTT D-Dimer 7044 H Sodium 144 Potassium 3.8 Chloride 105 Carbon Dioxide 28.1 Anion Gap 10.9 BUN 16 Creatinine 1.3 Est GFR (CKD-EPI 2020) 56.23 Glucose 118 H Calcium 9.2 Magnesium 2.3 Total Bilirubin 1.1 H AST 56 H ALT 85 H Alkaline Phosphatase 93 Troponin I 123 H* NT-Pro-B Natriuret Pep 1409 H Total Protein 7.5 Albumin 3.6 PFSH All Active Problems (Updated 05/14/25 @ 19:24 by Sis Lees APRN) Hypoxic respiratory failure (Acute) Pulmonary nodule (Acute) Troponin level elevated (Acute) Pulmonary embolism (Chronic) Tachycardia (Acute) Wears hearing aid in both ears (Acute) Sensorineural hearing loss (SNHL) of both ears (Acute) Status post lumbar spine surgery for decompression of spinal cord (Acute) L3-L5, January 24, 2025 in [facility]. Essential tremor (Acute) right hand, with certain activity Atherosclerosis of aorta (Acute) Hyperlipemia (Acute) Medical History Tenosynovitis Chronic sciatica Family History Mother No problems noted. Father No problems noted. Social History Smoking/Tobacco Use Status: Never Smoking risk assessment performed?: Yes Alcohol Intake: current Alcohol Intake frequency: a few times a week Alcohol type: beer Drug use: Never Substance use type: does not use Adopted: No Caregiver/Support person: No Household members: none Housing: house Number of Children: 1 number of grandchildren: 0 Communication Needs: Hard of Hearing Education Level: college Details: Grade 16 Do you need help understanding health information?: Rarely current occupation: Retired Sexually active: No Do you think of yourself as: straight/heterosexual Current gender identity: male What is your relationship status?: How often do you talk on the phone with friends or family?: once per week How often do you get together with friends or relatives?: three or more times per week How often do you attend hoahaoism or shinto services?: 1-3 times per year Do you belong to any clubs or organized social groups?: yes Panel score (0-1 are the most socially isolated patients): 2 What type of physical activity do you participate in: walking and other Details: Golf, Darts Duration: > 90 minutes/day Frequency: 3-4 times per week Saima/Protestant: Anabaptist Special saima needs: No Seatbelt use: always Drive intox or ride w/intox regional tanker truck driver: Yes Drive intox or w/intox regional tanker truck driver: rarely Firearms in home: No Do you feel safe at home: Yes Do you feel safe in your relationship?: Yes Victim of physical abuse: No Victim of emotional abuse: No Victim of sexual abuse: No Would you like helpful sources: No Time Spent with Patient Time Spent with Patient: >85 minutes Time was spent: preparing to see the patient(eg.review tests), obtaining and/or reviewing separately otained hiistory, ordering medications,tests, procedures, referring, communicating with other health daycare teacher, indepentently interpreting results, counseling the patient and care coordination
--- NOTE | 2025-05-15 12:16 | PDOC.CMIN ---
Care Management Initial Assmt Initial Assessment Reason for Hospitalization: PE Functional Status/Living Situation Town of Residence: [facility] Resides with: Alone Employment Status: Retired Medications Medication Management: No Issues/Barriers identified Advance Directives Advance Directives: Do you have an Advance Directive: N 05/14/25, 11:45 AD On File at [facility]: N 03/17/15, 13:14 Date Asked 05/14/25 05/14/25, 11:45 AD Date Reviewed COLST On File at [facility] COLST Date Scanned Code Status Resuscitation Status Full Code Insurance Coverage/Financial Issues Insurance: [facility] Medicare Replacement Care Team Visit Care Team Role Provider Type Sis Lees APRN MD [facility] STAFF PHYSICIAN Clementina Persaud NP Primary Care Provider NURSE PRACTITIONER [facility] Other Providers OTHER [facility] Provider NURSE PRACTITIONER Arsen Villatoro Admit Provider [facility] STAFF PHYSICIAN Attending Provider Discharge Potential Discharge Needs: PCP F/U Appt Anticipated Barriers to Discharge: None Identified Patient/Family Education Needs: Review discharge instructions, discuss Ask Me Three Transportation: Private vehicle Plan: Anticipate Bill will be discharged home with no new services. He will follow up with his community providers and plan of care and transport with a friend/family. CM will follow and continue to assess for discharge needs. Social Determinants of Health Screening Social Determinants of health last assessed in clinic: 05/14/25 Will the Patient Participate in the Screening?: Yes Do you worry about having a steady place to live?: no Problems where you live: no known problems In the past 12 months, have you had to go without electric, gas, oil or water in your home?: no Has lack of transportation kept you from medical appointments or from doing things needed for daily living?: no Has anyone in your life made you feel unsafe or unsupported?: no How hard is it for you to pay for the very basics like food, housing, medical care, and heating? Would you say it is:: Not hard at all Do you want help finding or keeping work or a job?: I do not need or want help If for any reason you need help with day-to-day activities such as bathing, preparing meals, shopping, managing finances, etc., do you get the help you need?: I don?t need any help How often do you feel lonely or isolated from those around you?: Never Do you speak a language other than [place] at home?: No Does the patient want assistance with any of the above?: No PFSH All Active Problems (Updated 05/14/25 @ 19:24 by Sis Lees APRN) Hypoxic respiratory failure (Acute) Pulmonary nodule (Acute) Troponin level elevated (Acute) Pulmonary embolism (Chronic) Tachycardia (Acute) Wears hearing aid in both ears (Acute) Sensorineural hearing loss (SNHL) of both ears (Acute) Status post lumbar spine surgery for decompression of spinal cord (Acute) L3-L5, January 24, 2025 in [facility]. Essential tremor (Acute) right hand, with certain activity Atherosclerosis of aorta (Acute) Hyperlipemia (Acute) Medical History Tenosynovitis Chronic sciatica Family History Mother No problems noted. Father No problems noted. Social History Smoking/Tobacco Use Status: Never Smoking risk assessment performed?: Yes Alcohol Intake: current Alcohol Intake frequency: a few times a week Alcohol type: beer Drug use: Never Substance use type: does not use Adopted: No Caregiver/Support person: No Household members: none Housing: house Number of Children: 1 number of grandchildren: 0 Communication Needs: Hard of Hearing Education Level: college Details: Grade 16 Do you need help understanding health information?: Rarely current occupation: Retired Sexually active: No Do you think of yourself as: straight/heterosexual Current gender identity: male What is your relationship status?: How often do you talk on the phone with friends or family?: once per week How often do you get together with friends or relatives?: three or more times per week How often do you attend temple or episcopalian services?: 1-3 times per year Do you belong to any clubs or organized social groups?: yes Panel score (0-1 are the most socially isolated patients): 2 What type of physical activity do you participate in: walking and other Details: Golf, Darts Duration: > 90 minutes/day Frequency: 3-4 times per week Saima/Sabianist: Jewish Special saima needs: No Seatbelt use: always Drive intox or ride w/intox charter and tour bus driver: Yes Drive intox or w/intox charter and tour bus driver: rarely Firearms in home: No Do you feel safe at home: Yes Do you feel safe in your relationship?: Yes Victim of physical abuse: No Victim of emotional abuse: No Victim of sexual abuse: No Would you like helpful sources: No
[2025-05-15] MEDS: Albuterol HFA 8 GM 60 PUFF INH IH (13:02)
[2025-05-15] MEDS: guaiFENesin 600 MG TABCR PO (13:22)
[2025-05-15] MEDS: Benzonatate 100 MG CAP PO (13:22)
--- NOTE | 2025-05-15 16:14 | CMPROGNOTE_ITS ---
Date of service: 05/15/25 Time of Service: 16:14 Care Management Progress Note Progress Note Text Progress Note Text: Pantera was admitted on 05/14/25 with bilateral pulmonary emboli. He was initially hypoxic, requiring 1L/min of nasal O2 however by this morning he was saturating at 94% on room air. Pantera is no longer having chest pain and his troponins are trending down. He was cleared by PT and is now considered medically stable for discharge. Pantera left before CM was able to meet with him. Discharge Potential Discharge Needs: PCP F/U Appt Anticipated Barriers to Discharge: None Identified Patient/Family Education Needs: Review discharge instructions, discuss Ask Me Three Transportation: Private vehicle Social Determinants of Health Screening Social Determinants of health last assessed in clinic: 05/15/25 Will the Patient Participate in the Screening?: Yes Do you worry about having a steady place to live?: no Problems where you live: no known problems In the past 12 months, have you had to go without electric, gas, oil or water in your home?: no 1. Within the past 12 months, we worried whether our food would run out before we got money to buy more.: Never true 2. Within the past 12 months, the food we bought just didn't last and we didn't have money to get more.: Never true Has lack of transportation kept you from medical appointments or from doing things needed for daily living?: no Has anyone in your life made you feel unsafe or unsupported?: no How hard is it for you to pay for the very basics like food, housing, medical care, and heating? Would you say it is:: Not hard at all Do you want help finding or keeping work or a job?: I do not need or want help If for any reason you need help with day-to-day activities such as bathing, preparing meals, shopping, managing finances, etc., do you get the help you need?: I don?t need any help How often do you feel lonely or isolated from those around you?: Never Do you speak a language other than [place] at home?: No Does the patient want assistance with any of the above?: No
== END 2025-05-15 16:07 | disposition home or self-care (01) | DRG 175 ==
LOC: ER 14:38 → MS 15:53
PROVIDERS: Admitting Provider Family Medicine; Emergency Provider Nurse Practitioner Family; PCP Nurse Practitioner Family; Responsible Provider Nurse Practitioner Acute Care; Visit Provider Family Medicine
DX: I26.99 Other pulmonary embolism without acute cor pulmonale (principal); J96.01 Acute respiratory failure with hypoxia; I82.411 Acute embolism and thrombosis of right femoral vein; I82.451 Acute embolism and thrombosis of right peroneal vein; I82.431 Acute embolism and thrombosis of right popliteal vein; I82.441 Acute embolism and thrombosis of right tibial vein; G25.0 Essential tremor; I70.0 Atherosclerosis of aorta; E78.5 Hyperlipidemia, unspecified; R74.8 Abnormal levels of other serum enzymes; R91.1 Solitary pulmonary nodule; R00.0 Tachycardia, unspecified; H90.3 Sensorineural hearing loss, bilateral; Z98.890 Other specified postprocedural states
CPT/HCPCS: 00123; 36415; 71275; 80053; 93005; 93308; 94640; 96361; 96365; 97161; 99285; 71046; 83735; 83880; 84484; 85025; 85379; 85610; 85730; 93010; 93306; 93970; 94664; 94760; 99223; 99239; J1644; J1650